=== PATIENT | female | born 1965 | race Caucasian/White ===

== ENCOUNTER 2017-11-15 07:52 | Day surgery (SDC) | payer MEDICAID, SELFPAY ==
[2017-11-15] MEDS ORDERED: Sodium Chloride 0.9% 10 ML Syringe FLUSH PRN (08:15)
[2017-11-15] MEDS ORDERED: Lactated Ringers 1,000 ML IV SCH (08:15)
[2017-11-15] MEDS ORDERED: Propofol 200 MG/20 ML SDV IV ONE (10:30)
[2017-11-15] MEDS ORDERED: Glycopyrrolate 0.2 MG/ML 5 ML MDV IV ONE (10:30)
--- NOTE | 2017-11-15 11:18 | PCM.OPNOTE ---
- General Post-Op/Procedure Note Date of Surgery/Procedure: 11/15/17 Operative Procedure(s): c scope Findings: mariginal prep Pre Op Diagnosis: hx of hematochezia Post-Op Diagnosis: internal hemorrohoids Anesthesia Technique: MAC (s) Primary Surgeon: Wei Magana Anesthesia Provider: Asim Tee Pathology: none Complications: None Condition: Good Free Text/Narrative:: see dictation recommending repeat c scope in 5 yrs due to prep
--- NOTE | 2017-11-15 12:31 | OR ---
DATE OF OPERATION: 11/15/2017 SURGEON: Wei Magana MD PROCEDURE PERFORMED: Colonoscopy. PREOPERATIVE DIAGNOSIS: History of hematochezia. POSTOPERATIVE DIAGNOSIS: Marginal prep and internal hemorrhoids. INDICATIONS FOR PROCEDURE: This is a 52-year-old white female who is referred with some hematochezia. She was offered and accepted a colonoscopy. DESCRIPTION OF PROCEDURE: After an excellent IV sedation was administered, digital rectal exam was performed. No marked abnormality was noted. Flexible colonoscope was inserted into the cecum. The prep was marginal. We were able to irrigate and get a fair view of the colon; however, we did have to change out the scopes during the procedure as one scope did get clogged with particulate matter. The following findings were noted. Ascending colon, unremarkable. Transverse colon, unremarkable. Descending colon, unremarkable. Sigmoid and rectum, unremarkable. Colon was deflated. The scope was removed. Due to prep quality, no large polyps were noted. There was a possibility that we may have missed some smaller ones despite of irrigation and, therefore, I am recommending a repeat colonoscopy in 5 years. /[id number] /MODL
== END 2017-11-15 12:20 | disposition home or self-care (01) ==
LOC: FB.SDS 07:52
PROVIDERS: ATTEND Surgery
DX: K92.1 Melena (principal); K59.09 Other constipation; N39.46 Mixed incontinence; E03.9 Hypothyroidism, unspecified; E66.2 Morbid (severe) obesity with alveolar hypoventilation; Z68.43 Body mass index [BMI] 50.0-59.9, adult; R73.01 Impaired fasting glucose; F41.9 Anxiety disorder, unspecified; F33.9 Major depressive disorder, recurrent, unspecified; Z79.84 Long term (current) use of oral hypoglycemic drugs; Z79.899 Other long term (current) drug therapy; Z88.8 Allergy status to other drugs, medicaments and biological substances; Z87.891 Personal history of nicotine dependence
CPT/HCPCS: 45378; 81025; 82962; J2704; J3490; J7120

== ENCOUNTER 2018-04-07 17:34 | Emergency (ER) | payer MEDICAID ==
[2018-04-07] MEDS ORDERED: traMADol 50 MG Tab PO ONE (17:35)
[2018-04-07] MEDS: Ketorolac 60 MG/2 ML SDV IM ONE (18:25)
--- NOTE | 2018-04-07 19:43 | EDM.PDOC ---
ED HPI GENERAL MEDICAL PROBLEM - General Chief Complaint: Lower Extremity Injury/Pain Stated Complaint: PAIN IN L KNEE Time Seen by Provider: 04/07/18 17:34 Source of Information: Reports: Patient, Family History Limitations: Reports: Physical Impairment - History of Present Illness INITIAL COMMENTS - FREE TEXT/NARRATIVE: 52 y.o.w.f with a h/o osteoarthritis at her left knee, seen at the pain clinic, came to the ed because of worsening left ant knee pain.No trauma. Pt ran out of pain meds. Pt has job, which requires her to stand all day long. Pt stated, she can not put weight onto her left leg and can not do her job. She has an appointment with the pain clinic this Saturday. No open wounds, no N/V/D or any other constitutional symptoms. BP 106/69 RR 16 Pulse ox 99% on RA Pulse 83 Temp 36.1 Onset: Unknown/Unsure Onset Date: 04/04/18 Onset Time: 09:00 Duration: Day(s):, Intermittent Location: Reports: Lower Extremity, Left (knee) Quality: Reports: Ache, Dull, Same as Previous Episode Severity: Moderate Improves with: Reports: Rest Worsens with: Reports: Movement Context: Reports: Other (H/O osteoarthritis left knee) Associated Symptoms: Reports: No Other Symptoms left knee Pain Score (Numeric/FACES): 2 - Related Data Allergies Allergy/AdvReac Type Severity Reaction Status Date / Time clonazepam [From Klonopin] Allergy Anaphylactic Verified 04/07/18 18:44 Shock varenicline [From Chantix] Allergy Other Verified 04/07/18 18:44 Home Meds: Home Meds Acetaminophen 20.31 ml PO Q6H PRN 11/14/17 [History] Calcium Carbonate/Vitamin D3 [Calcium Carbonate/Vitamin D 600 MG-200 Unit] 1 tab PO DAILY 11/14/17 [History] Celecoxib [CeleBREX] 200 mg PO DAILY 11/14/17 [History] DULoxetine [Cymbalta] 30 mg PO DAILY 11/14/17 [History] Docusate Calcium [Stool Softener] 1 cap PO DAILY PRN 11/14/17 [History] Levothyroxine 150 mcg PO DAILY 11/14/17 [History] Norethindrone 0.35 mg PO DAILY 11/14/17 [History] Omeprazole 20 mg PO BID 11/14/17 [History] Oxybutynin 5 mg PO BID 11/14/17 [History] Polyethylene Glycol 1000 [Polyethylene Glycol] 1 scoop PO ASDIRECTED PRN [History] Vitamin B Complex [Ultra B-100 Complex] 1 each PO DAILY 11/14/17 [History] buPROPion [Wellbutrin] 200 mg PO DAILY 11/14/17 [History] metFORMIN HCl [Metformin HCl] 500 mg PO BID 11/14/17 [History] tiZANidine [Zanaflex] 2 - 4 mg PO BID PRN 11/14/17 [History] traZODone 300 mg PO BEDTIME 11/14/17 [History] Past Medical History HEENT History: Reports: Impaired Vision Cardiovascular History: Reports: SOB on Exertion, Other (See Below) Other Cardiovascular History: EDEMA AT TIMES AFTER A LONG DAY. 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 Neurological History: Reports: None Psychiatric History: Reports: Anxiety, Depression Endocrine/Metabolic History: Reports: Other (See Below) Other Endocrine/Metabolic History: PT DENIES ANY DIABETES, ON METFORMIN AFTER GASTRIC BYPASS. Hematologic History: Reports: None Immunologic History: Reports: None Oncologic (Cancer) History: Reports: None Dermatologic History: Reports: None - Infectious Disease History Infectious Disease History: Reports: Chicken Pox - Past Surgical History Head Surgeries/Procedures: Reports: None HEENT Surgical History: Reports: Eye Surgery GI Surgical History: Reports: Bariatric Procedure Female Surgical History: Reports: Lithotripsy/ESWL Social & Family History - Family History Family Medical History: Noncontributory - Tobacco Use Smoking Status *Q: Former Smoker Used Tobacco, but Quit: Yes Month/Year Tobacco Last Used: 2015 - Caffeine Use Caffeine Use: Reports: None - Recreational Drug Use Recreational Drug Use: No Review of Systems - Review of Systems Review Of Systems: See Below Constitutional: Reports: No Symptoms Eyes: Reports: No Symptoms Ears: Reports: No Symptoms Nose: Reports: No Symptoms Mouth/Throat: Reports: No Symptoms Respiratory: Reports: No Symptoms Cardiovascular: Reports: No Symptoms GI/Abdominal: Reports: No Symptoms Genitourinary: Reports: No Symptoms Musculoskeletal: Reports: Joint Pain (left knee) Skin: Reports: No Symptoms Neurological: Reports: No Symptoms Psychiatric: Reports: No Symptoms ED EXAM, GENERAL - Physical Exam Exam: See Below Exam Limited By: No Limitations General Appearance: Alert, WD/WN, Obese Eye Exam: Bilateral Eye: Normal Inspection Ears: Normal External Exam Ear Exam: Bilateral Ear: Auricle Normal Nose: Normal Inspection, Normal Mucosa, No Blood Throat/Mouth: Normal Inspection, Normal Lips, Normal Teeth, Normal Gums, Normal Oropharynx, Normal Voice, No Airway Compromise Head: Atraumatic, Normocephalic Neck: Normal Inspection, Supple, Non-Tender, Full Range of Motion Respiratory/Chest: No Respiratory Distress, Lungs Clear Cardiovascular: Normal Peripheral Pulses, Regular Rate, Rhythm Peripheral Pulses: 1+: Brachial (R) GI/Abdominal: Normal Bowel Sounds, Soft, Non-Tender, No Abnormal Bruit (Female) Exam: Deferred Rectal (Female) Exam: Deferred Back Exam: Normal Inspection, Full Range of Motion Extremities: Normal Inspection, Normal Range of Motion, Non-Tender, No Pedal Edema, Normal Capillary Refill Neurological: Alert, Oriented, CN II-XII Intact, Normal Cognition, Abnormal Gait Psychiatric: Normal Affect, Normal Mood Skin Exam: Warm, Dry, Intact, Normal Color, No Rash Lymphatic: No Adenopathy Course - Vital Signs Text/Narrative:: 52 y.o.w.f with a h/o osteoarthritis at her left knee, seen at the pain clinic, came to the ed because of worsening left ant knee pain.No trauma. Pt ran out of pain meds. Pt has job, which requires her to stand all day long. Pt stated, she can not put weight onto her left leg and can not do her job. She has an appointment with the pain clinic this Saturday. No open wounds, no N/V/D or any other constitutional symptoms. BP 106/69 RR 16 Pulse ox 99% on RA Pulse 83 Temp 36.1 PE: Morbid obese w f with left knee pain Imaging: left knee osteoarthritis, Official report is pending Impression: Left knee osteoarthritis Tx: Toradol, ICE. Knee immobilizer and crutches Reexam: Improved, pt was able to ambulate with crutches. Plan: D/C with instructions Last Recorded V/S: Last Vital Signs Temp 36.8 C 04/07/18 19:30 Pulse 74 04/07/18 20:05 Resp 18 04/07/18 20:05 BP 115/74 04/07/18 20:05 Pulse Ox 100 04/07/18 20:05 - Orders/Labs/Meds Orders: Active Orders 24 hr Category Date Time Status Knee 3V Lt [CR] Stat Exams 04/07/18 17:58 Taken Ice Therapy [OM.PC] Routine Oth 04/07/18 17:58 Ordered Meds: Medications Discontinued Medications Generic Name Dose Route Start Last Admin Trade Name Nicci PRN Reason Stop Dose Admin Ketorolac Tromethamine 60 mg 04/07/18 17:58 04/07/18 18:25 Toradol IM 04/07/18 17:59 60 mg ONETIME ONE Administration Departure - Departure Time of Disposition: 19:40 Disposition: Home, Self-Care 01 Condition: Good Clinical Impression: Osteoarthritis Qualifiers: Osteoarthritis location: knee Osteoarthritis type: primary Laterality: left Qualified Code(s): M17.12 - Unilateral primary osteoarthritis, left knee - Discharge Information Instructions: Crutch Use, Adult, [id number], Tramadol tablets, Knee Pain, Adult, [id number] Referrals: Arpita Brown NP [Primary Care Provider] - Yovanny Herbert DO [Physician] - Forms: ED Department Discharge, ED Return to Work/School Form Additional Instructions: Please wear the knee immobilizer, use crutches, please follow up with your orthopedic surgeon or regular MD, please come back if your symptoms get worse acutely. Tramadol 50mg 1 tablet every 8 hours as needed for pain. - My Orders Last 24 Hours: My Active Orders 04/07/18 17:58 Knee 3V Lt [CR] Stat Ice Therapy [OM.PC] Routine - Assessment/Plan Last 24 Hours: My Active Orders 04/07/18 17:58 Knee 3V Lt [CR] Stat Ice Therapy [OM.PC] Routine
== END 2018-04-07 20:15 | disposition home or self-care (01) ==
LOC: FB.ED 17:34
DX: M17.12 Unilateral primary osteoarthritis, left knee (principal); F32.9 Major depressive disorder, single episode, unspecified; F41.9 Anxiety disorder, unspecified; Z87.891 Personal history of nicotine dependence; Z79.899 Other long term (current) drug therapy; Z88.8 Allergy status to other drugs, medicaments and biological substances
CPT/HCPCS: 73562; 99283; A9270; J1885; 96372

== ENCOUNTER 2018-04-24 07:50 | Day surgery (SDC) | payer MEDICAID ==
[2018-04-24] MEDS ORDERED: Gabapentin 300 MG Cap PO ONE (08:30)
[2018-04-24] MEDS ORDERED: Sodium Chloride 0.9% 10 ML Syringe FLUSH PRN (08:30)
[2018-04-24] MEDS ORDERED: Scopolamine 1.5 MG Transdermal Patch TRDERM ONE (08:30)
[2018-04-24] MEDS ORDERED: Acetaminophen 500 MG Tab PO ONE (08:30)
[2018-04-24] MEDS ORDERED: Lactated Ringers 1,000 ML IV SCH (08:30)
[2018-04-24] MEDS ORDERED: Ropivacaine 49.25 ML, Ketorolac 30 MG, EPINEPHrine 0.5 MG, cloNIDine 80 MCG, Sodium Chl... INJECT SCH ×5 (10:00)
[2018-04-24] MEDS ORDERED: ceFAZolin 2 GM in Premix Bag 1 BAG IV ONE (10:00)
== END 2018-04-24 10:21 | disposition home or self-care (01) ==
LOC: FB.SDS 07:50
PROVIDERS: ATTEND Orthopaedic Surgery
DX: M17.12 Unilateral primary osteoarthritis, left knee (principal); Z53.9 Procedure and treatment not carried out, unspecified reason
CPT/HCPCS: 36415; 81001; 81025; 86850; 86900; 86901; 87086; A9270

== ENCOUNTER 2018-04-29 07:11 | Day surgery (SDC) | payer MEDICAID ==
[2018-04-29] MEDS ORDERED: fentaNYL 100 MCG/2 ML SDV IV ONE (07:12)
[2018-04-29] MEDS ORDERED: Dexmedetomidine 200 MCG/2 ML SDV IV ONE (07:12)
[2018-04-29] MEDS ORDERED: Lactated Ringers 1,000 ML IV ONE (07:12)
[2018-04-29] MEDS ORDERED: Ketamine 500 mg/10 ML MDV IV ONE (07:12)
[2018-04-29] MEDS ORDERED: Midazolam 1 MG/ML 2 ML SDV IV ONE (07:12)
[2018-04-29] MEDS ORDERED: Morphine PF 10 MG/10 ML SDV EPIDUR ONE (07:12)
[2018-04-29] MEDS ORDERED: ePHEDrine 50 MG/ML SDV IV ONE (07:12)
[2018-04-29] MEDS ORDERED: Propofol 200 MG/20 ML SDV IV ONE (07:12)
[2018-04-29] MEDS ORDERED: Gabapentin 300 MG Cap PO ONE (07:30)
[2018-04-29] MEDS ORDERED: Scopolamine 1.5 MG Transdermal Patch TOP ONE (07:30)
[2018-04-29] MEDS ORDERED: Lactated Ringers 1,000 ML IV SCH ×2 (07:30→10:45)
[2018-04-29] MEDS ORDERED: Acetaminophen 500 MG Tab PO ONE (07:30)
[2018-04-29] MEDS ORDERED: Ropivacaine 49.25 ML, Ketorolac 30 MG, EPINEPHrine 0.5 MG, cloNIDine 80 MCG, Sodium Chl... INJECT SCH ×5 (09:00)
[2018-04-29] MEDS ORDERED: ceFAZolin 2 GM in Premix Bag 1 BAG IV ONE (09:00)
[2018-04-29] MEDS ORDERED: diphenhydrAMINE 50 MG/ML SDV IVPUSH PRN (10:38)
[2018-04-29] MEDS ORDERED: Zolpidem 5 MG Tab PO PRN (10:38)
[2018-04-29] MEDS ORDERED: Magnesium Hydroxide 400 MG/5 ML Susp 30 ML Cup PO PRN (10:38)
[2018-04-29] MEDS ORDERED: traMADol 50 MG Tab PO PRN (10:38)
[2018-04-29] MEDS ORDERED: Sodium Chloride 0.9% 10 ML Syringe FLUSH PRN (10:38)
[2018-04-29] MEDS ORDERED: Docusate Sodium 100 MG Cap PO PRN (10:38)
[2018-04-29] MEDS ORDERED: Ondansetron 4 MG/2 ML SDV IVPUSH PRN (10:38)
[2018-04-29] MEDS ORDERED: Morphine 2 MG/ML Syringe IVPUSH PRN (10:38)
[2018-04-29] MEDS ORDERED: Sennosides 8.6 MG Tab PO PRN (10:38)
[2018-04-29] MEDS ORDERED: Bisacodyl 5 MG Tab PO PRN (10:38)
[2018-04-29] MEDS ORDERED: Naloxone 0.4 MG/ML SDV IVPUSH PRN (10:38)
[2018-04-29] MEDS ORDERED: Nalbuphine 10 MG/1 ML Vial IVPUSH PRN (10:49)
[2018-04-29] MEDS: Ketorolac 30 MG/ML SDV IVPUSH SCH ×2 (11:46→18:15)
--- NOTE | 2018-04-29 12:09 | OR ---
DATE OF OPERATION: 04/29/2018 SURGEON: Yovanny Herbert DO PREOPERATIVE DIAGNOSIS: Left knee primary osteoarthritis. POSTOPERATIVE DIAGNOSIS: Left knee primary osteoarthritis. PROCEDURE: Left knee medial compartment partial knee arthroplasty. ANESTHESIA: Spinal plus conscious sedation. FLUID: Lactated Ringer's solution. ESTIMATED BLOOD LOSS: 100 mL. COMPLICATIONS: None. SPECIMEN: None. DISCHARGE DISPOSITION: Stable to PACU. INSTRUMENTATION: DePuy Sigma size 3 femur, size 2 tibial base plate, and 7 mm size 2 polyethylene insert. HISTORY AND INDICATIONS FOR PROCEDURE: The patient was seen preoperatively in the clinic. She had failed nonoperative treatment. Preoperative imaging confirmed the above-mentioned diagnosis with [id number] deformity of the medial compartment. The risks and benefits of the procedure explained to the patient. Informed consent was obtained. DETAILS OF PROCEDURE: The patient was seen preoperatively by myself and the anesthesia staff in the preoperative holding area where the operative site was marked. She was brought to the operative suite by Anesthesia staff where spinal sedation plus conscious sedation was administered. All extremities were found to be well padded. The right lower extremity was placed into a stirrup. The left lower extremity was placed into a leg-walker under the thigh in slight flexion to avoid any femoral nerve injury. The left lower extremity also had a gel pad placed. A sterile Kingston catheter was placed prior to the procedure. The left lower extremity had a well-padded tourniquet placed on the thigh. The left lower extremity was then prepped and draped in a sterile manner. Time-out was called identifying the correct patient, the correct procedure, the correct site, and the antibiotics had been within appropriate period of time. The left lower extremity was then exsanguinated and tourniquet raised to 300 mmHg for 37 minutes and taken down during cementing. An incision was made medial to the patella through the superior pole down to the level of the tibial tubercle. A medial parapatellar incision was made. Bleeding was controlled with Bovie electrocautery as well as topical tranexamic acid. The infrapatellar fat pad was then removed. The cranial portion of the medial meniscus was removed. The medial tibia proximally was visualized using Bovie electrocautery. Gelpi's were used for retraction. An extramedullary tibial guide was made with a 2 mm proximal cut. This was in line with the ASIS. An osteotome was then used to detach the proximal tibial bone cut from the remainder of the tibia and then was removed using Renetta's. I then removed the remainder of the medial meniscus using Bovie electrocautery. Using the Renetta, I was able to place a 7 mm tibial insert. This was equal in both flexion and extension. I then marked the midportion of the distal medial femoral condyle with a marking pen using the size 2 tibial plastic insert. I then put the knee out into extension, placed my distal femoral cutting guide, pinned this in position, made my distal femoral cut. I removed the pins and then removed the guide. I then placed the knee in flexion and placed my tibial 7 mm insert and then marked the midportion. I then placed a size 3 femoral cutting guide on in line with my 2 billy indicating the midportion of the condyle on its anterior and posterior portion. I pinned this in place, made my 3 cuts and then drilled 2 lug holes. We then removed the pins holding the guide and then removed the guide. I used an osteotome to remove any extra bone. I did use a reciprocating saw to remove more osteophytes on the medial distal femur that was remaining. I then inserted my femoral trial and a 7 mm base plate. This provided excellent range of motion with excellent stability throughout flexion and extension. I then removed all my components, copiously irrigated with saline, and then placed tranexamic acid, and then cauterized the posterior capsule. I did not see any bleeders present. We then dried our bone using laps and suction and then cemented our components in place. We let down the tourniquet. The knee was held in approximately 20 degrees of flexion while the cement hardened. I had taken great care to remove any extra cement. I did remove a small amount of cement after the cement hardened and we irrigated. I used Betadine irrigation as well as tranexamic acid and pulse irrigation. This again provided excellent stability throughout range of motion. We then closed the medial parapatellar incision with two #5 Ethibond interrupted [id number] sutures and then a continuous Stratafix #1 suture. We then irrigated again with Betadine-infused irrigation, a little bit more TXA, and then pulse irrigation. We then closed the subcutaneous layer with a #1 Stratafix followed by skin brandon followed by Betadine-soaked Adaptic sponges and Gwendolyne tape. The patient was then allowed to awaken from conscious sedation and transferred to her hospital bed in stable condition. /[id number] BS/JORDY
[2018-04-29] MEDS: Sodium Chloride 0.9% 10 ML Syringe FLUSH PRN ×2 (14:15→18:15)
[2018-04-29] MEDS: ceFAZolin 1 GM in Sodium Chloride 0.9% 50 ML IV SCH (16:00)
[2018-04-29] MEDS: metFORMIN 500 MG Tab PO SCH (18:16)
[2018-04-29] MEDS: Oxybutynin 5 MG Tab PO SCH (20:45)
[2018-04-29] MEDS: buPROPion 100 MG Tab PO SCH (20:45)
[2018-04-29] MEDS ORDERED: traZODone 50 MG Tab PO SCH (21:00)
[2018-04-30] MEDS: ceFAZolin 1 GM in Sodium Chloride 0.9% 50 ML IV SCH ×2 (00:07→07:58)
[2018-04-30] MEDS: Acetaminophen/oxyCODONE 325-5 MG Tab PO PRN ×3 (03:43→12:15)
[2018-04-30] MEDS: Sodium Chloride 0.9% 10 ML Syringe FLUSH PRN ×2 (03:44→07:57)
[2018-04-30] MEDS ORDERED: Pantoprazole 40 MG Tab.CR PO SCH (06:00)
[2018-04-30] MEDS ORDERED: Levothyroxine 150 MCG Tab PO SCH (06:00)
[2018-04-30] MEDS: metFORMIN 500 MG Tab PO SCH (08:04)
[2018-04-30] MEDS: buPROPion 100 MG Tab PO SCH (08:04)
[2018-04-30] MEDS: Oxybutynin 5 MG Tab PO SCH (08:05)
[2018-04-30] MEDS ORDERED: NORETHINDRONE PO SCH (09:00)
[2018-04-30] MEDS ORDERED: Aspirin 325 MG Tab.EC PO SCH (09:00)
[2018-04-30] MEDS ORDERED: DULoxetine 30 MG Cap PO SCH (09:00)
--- NOTE | 2018-04-30 10:59 | PCM.DCSUM1 ---
Discharge Summary - Hospital Course Free Text/Narrative:: 52 yo female pod 1 left knee pka. Diagnosis: Stroke: No - Discharge Data Discharge Date: 04/30/18 Discharge Disposition: Home, W Home Health Agency 06 Condition: Good - Patient Summary/Data Operative Procedure(s) Performed: left knee medial compartment arthroplasty Complications: none Consults: Consultations 04/29/18 10:38 Respiratory Care Assess and Treatment [CONS] Routine Comment: Physician Instructions: Post-op Pneumonia Prevention 04/29/18 15:00 OT Evaluation and Treatment [CONS] Routine Please Evaluate and Treat. OT Reason for Consult: Strengthening This query below is only for informational purposes and is not editable. Admission Diagnosis/Problem: Knee joint operation PT Evaluation and Treatment [CONS] Routine Please Evaluate and Treat. PT Reason for Consult: Strengthening This query below is only for informational purposes and is not editable. Admission Diagnosis/Problem: Knee joint operation Hospital Course: admitted to [facility] 04/29/18 for left pka. kept overnight for pain control/pt/ot/ dvt prophylaxis. did well. pain controlled. dc with home health today - Patient Instructions Diet: Usual Diet as Tolerated Activity: Apply Ice, As Tolerated, No Strenuous Activities Driving: Do Not Drive Showering/Bathing: May Shower Wound/Incision Care: Change Dressing Daily Wound/Incision, Other: daily dressing change with sponge and tape Notify Provider of: Fever, Increased Pain, Swelling and Redness, Drainage, Nausea and/or Vomiting - Discharge Plan *PRESCRIPTION DRUG MONITORING PROGRAM REVIEWED*: Yes *COPY OF PRESCRIPTION DRUG MONITORING REPORT IN PATIENT GRACIA: No Prescriptions/Med Rec: Acetaminophen/oxyCODONE [Percocet 325-5 MG] 1 tab PO Q6HR PRN 14 Days #56 tablet PRN Reason: Pain (Moderate 4-6) Aspirin [Ecotrin] 325 mg PO DAILY #21 tab.ec Home Medications: Home Meds buPROPion [Wellbutrin] 400 mg PO DAILY 11/14/17 [History] tiZANidine [Zanaflex] 2 - 4 mg PO BID PRN 11/14/17 [History] Acetaminophen [Tylenol 160 MG/5 ML Liq] 650 mg PO Q6HR PRN 04/23/18 [History] Calcium Carbonate/Vitamin D3 [Calcium 250+D] 1 tab PO WITHBREAKFAST 04/23/18 [ History] Celecoxib 200 mg PO WITHBREAKFAST 04/23/18 [History] DULoxetine HCl [Duloxetine HCl] 30 mg PO DAILY 04/23/18 [History] Docusate Calcium 1 cap PO ASDIRECTED PRN 04/23/18 [History] Levothyroxine 150 mcg PO DAILY 04/23/18 [History] Multivitamin [Multiple Vitamins] 1 tab PO BID 04/23/18 [History] Norethindrone 1 tab PO DAILY 04/23/18 [History] Omeprazole 20 mg PO ASDIRECTED PRN 04/23/18 [History] Oxybutynin 5 mg PO BID 04/23/18 [History] Polyethylene Glycol 3350 [Miralax] 1 scoop PO ASDIRECTED PRN 04/23/18 [History] Vitamin B Complex [B Complex] 1 each PO DAILY 04/23/18 [History] metFORMIN HCl [Metformin HCl] 500 mg PO BID 04/23/18 [History] traZODone 150 mg PO BEDTIME 04/23/18 [History] Acetaminophen/oxyCODONE [Percocet 325-5 MG] 1 tab PO Q6HR PRN 14 Days #56 tablet 04/30/18 [Rx] Aspirin [Ecotrin] 325 mg PO DAILY #21 tab.ec 04/30/18 [Rx] Patient Handouts: Total Knee Replacement, Care After, Total Knee Replacement, [id number], Fall Prevention in Hospitals, Adult, Venous Thromboembolism Prevention - Discharge Summary/Plan Comment DC Time >30 min.: No - General Info Functional Status: Reports: Pain Controlled, Tolerating Diet, Ambulating, Urinating - Review of Systems General: Reports: No Symptoms HEENT: Reports: No Symptoms Pulmonary: Reports: No Symptoms Cardiovascular: Reports: No Symptoms Gastrointestinal: Reports: No Symptoms Genitourinary: Reports: No Symptoms Musculoskeletal: Reports: Joint Pain, Joint Swelling Skin: Reports: No Symptoms Neurological: Reports: No Symptoms Psychiatric: Reports: No Symptoms - Patient Data Vitals - Most Recent: Last Vital Signs Temp 98.5 F 04/30/18 07:20 Pulse 68 04/30/18 07:20 Resp 18 04/30/18 07:20 BP 93/56 L 04/30/18 07:20 Pulse Ox 95 04/30/18 07:20 Weight - Most Recent: 218 lb 7.649 oz I&O - Last 24 hours: Intake & Output 04/29/18 04/30/18 04/30/18 22:59 06:59 14:59 Intake Total 550 250 300 Output Total 350 800 Balance 200 -550 300 Lab Results - Last 24 hrs: Laboratory Results - last 24 hr 04/30/18 04/30/18 Range/Units 06:00 06:00 WBC 6.9 (4.5-12.0) X10-3/uL RBC 4.28 (3.23-5.20) x10(6)uL Hgb 13.1 (11.5-15.5) g/dL Hct 38.3 (30.0-51.3) % MCV 89.4 (80-96) fL MCH 30.5 (27.7-33.6) pg MCHC 34.2 (32.2-35.4) g/dL RDW 12.8 (11.5-15.5) % Plt Count 224 (125-369) X10(3)uL MPV 8.4 (7.4-10.4) fL Neut % (Auto) 64.4 (46-82) % Lymph % (Auto) 26.0 (13-37) % Blackford % (Auto) 6.3 (4-12) % Eos % (Auto) 3 (1.0-5.0) % Baso % (Auto) 1 (0-2) % Neut # (Auto) 4.5 (1.6-8.3) # Lymph # (Auto) 1.8 (0.6-5.0) # Blackford # (Auto) 0.4 (0.0-1.3) # Eos # (Auto) 0.2 (0.0-0.8) # Baso # (Auto) 0.0 (0.0-0.2) # Sodium 138 (135-145) mmol/L Potassium 4.5 (3.5-5.3) mmol/L Chloride 103 (100-110) mmol/L Carbon Dioxide 31 (21-32) mmol/L BUN 25 H (7-18) mg/dL Creatinine 1.3 H (0.55-1.02) mg/dL Est Cr Clr Drug Dosing 40.95 mL/min Estimated GFR (MDRD) 43 L (>60) BUN/Creatinine Ratio 19.2 (9-20) Glucose 98 (80-116) mg/dL Calcium 8.7 (8.6-10.2) mg/dL Total Bilirubin 0.2 (0.1-1.3) mg/dL AST 20 (5-25) IU/L ALT 18 (12-36) U/L Alkaline Phosphatase 68 (56-112) IU/L Total Protein 6.7 (6.0-8.0) g/dL Albumin 3.3 L (3.5-5.2) g/dL Globulin 3.4 g/dL Albumin/Globulin Ratio 1.0 Med Orders - Current: Current Medications Aspirin (Ecotrin) 325 mg PO DAILY [facility] Last Admin: 04/30/18 08:05 Dose: 325 mg Bisacodyl (Dulcolax) 10 mg PO DAILY PRN PRN Reason: Constipation Bupropion HCl (Wellbutrin) 200 mg PO BID [facility] Last Admin: 04/30/18 08:04 Dose: 200 mg Diphenhydramine HCl (Benadryl) 25 mg IVPUSH Q4H PRN PRN Reason: Itching Docusate Sodium (Colace) 100 mg PO BID PRN PRN Reason: Constipation Duloxetine HCl (Cymbalta) 30 mg PO DAILY [facility] Last Admin: 04/30/18 08:05 Dose: 30 mg Levothyroxine Sodium (Levothyroxine) 150 mcg PO DAILY@0600 [facility] Last Admin: 04/30/18 06:05 Dose: 150 mcg Magnesium Hydroxide (Milk Of Magnesia) 30 ml PO BID PRN PRN Reason: Constipation Metformin HCl (Glucophage) 500 mg PO BIDMEALS [facility] Last Admin: 04/30/18 08:04 Dose: 500 mg Morphine Sulfate (Morphine) 2 mg IVPUSH Q2H PRN PRN Reason: Breakthrough Pain Nalbuphine HCl (Nubain) 10 mg IVPUSH Q1H PRN PRN Reason: Pruritus Naloxone HCl (Narcan) 0.1 mg IVPUSH ONETIME PRN PRN Reason: Oversedation Non-Formulary Medication (Norethindrone [Norethindrone]) 1 tab PO DAILY [facility] Ondansetron HCl (Zofran) 4 mg IVPUSH Q4H PRN PRN Reason: Nausea/Vomiting Oxybutynin Chloride (Oxybutynin) 5 mg PO BID [facility] Last Admin: 04/30/18 08:05 Dose: 5 mg Oxycodone/Acetaminophen (Percocet 325-5 Mg) 2 tab PO Q4H PRN PRN Reason: Pain (moderate 4-6) Last Admin: 04/30/18 08:02 Dose: 2 tab Pantoprazole Sodium (Protonix) 40 mg PO DAILY@0600 [facility] Last Admin: 04/30/18 06:05 Dose: 40 mg Senna (Senna) 8.6 mg PO BID PRN PRN Reason: Constipation Sodium Chloride (Saline Flush) 10 ml FLUSH ASDIRECTED PRN PRN Reason: Keep Vein Open Last Admin: 04/30/18 07:57 Dose: 10 ml Sodium Chloride (Saline Flush) 10 ml FLUSH ASDIRECTED PRN PRN Reason: Keep Vein Open Tramadol HCl (Ultram) 100 mg PO Q6H PRN PRN Reason: Pain (mild 1-3) Trazodone HCl (Trazodone) 150 mg PO BEDTIME [facility] Last Admin: 04/29/18 20:45 Dose: 150 mg Zolpidem Tartrate (Ambien) 5 mg PO BEDTIME PRN PRN Reason: Sleep Discontinued Medications Acetaminophen (Tylenol Extra Strength) 1,000 mg PO ONETIME ONE Stop: 04/29/18 07:31 Last Admin: 04/29/18 07:41 Dose: 1,000 mg Ropivacaine 49.25 ml/Ketorolac Tromethamine 30 mg/Epinephrine HCl 0.5 mg/ Clonidine HCl 80 mcg/ Sodium Chloride 48.45 ml 0 ml INJECT ASDIRECTED [facility] Last Admin: 04/29/18 10:18 Dose: 100 syringe Gabapentin (Neurontin) 300 mg PO ONETIME ONE Stop: 04/29/18 07:31 Last Admin: 04/29/18 07:41 Dose: 300 mg Cefazolin Sodium/Dextrose 2 gm (/ Premix) 50 mls @ 100 mls/hr IV ONETIME ONE Stop: 04/29/18 09:29 Last Admin: 04/29/18 08:17 Dose: 100 mls/hr Lactated Ringer's (Ringers, Lactated) 1,000 mls @ 125 mls/hr IV ASDIRECTED [facility] Last Admin: 04/29/18 08:16 Dose: 125 mls/hr Cefazolin Sodium 1 gm/ Sodium (Chloride) 50 mls @ 200 mls/hr IV Q8H [facility] Stop: 04/30/18 08:14 Last Admin: 04/30/18 07:58 Dose: 200 mls/hr Lactated Ringer's (Ringers, Lactated) 1,000 mls @ 75 mls/hr IV ASDIRECTED [facility] Last Admin: 04/29/18 12:26 Dose: 75 mls/hr Ketorolac Tromethamine (Toradol) 30 mg IVPUSH Q8H [facility] Stop: 04/29/18 19:01 Last Admin: 04/29/18 18:15 Dose: 30 mg Scopolamine (Transderm-Scop) 1.5 mg TOP ONETIME ONE Stop: 04/29/18 07:31 Last Admin: 04/29/18 07:42 Dose: 1.5 mg - Exam General: Reports: Alert, Oriented, Cooperative, No Acute Distress HEENT: Reports: Pupils Equal, Pupils Reactive, Mucous Membr. Moist/Neshanic Neck: Reports: Supple, Trachea Midline Lungs: Reports: Normal Respiratory Effort GI/Abdominal Exam: No Distention Extremities: No Pedal Edema, Normal Capillary Refill, Joint Swelling, Leg Pain, Limited Range of Motion Skin: Reports: Warm, Intact Wound/Incisions: Reports: Healing Well, Dressing Dry and Intact, No Drainage Psy/Mental Status: Reports: Alert, Normal Affect, Normal Mood Discharge Operative/Procedures - Procedures Performed Operations: left knee pka
[2018-04-30] MEDS ORDERED: buPROPion 100 MG Tab PO ONE (11:01)
== END 2018-04-30 14:40 | disposition home health service (06) ==
LOC: FB.SDS 07:11 → FB.MS 12:12 → FB.SDS 04-30 14:40
PROVIDERS: ATTEND Orthopaedic Surgery
DX: M17.0 Bilateral primary osteoarthritis of knee (principal); E66.2 Morbid (severe) obesity with alveolar hypoventilation; Z68.41 Body mass index [BMI] 40.0-44.9, adult; E03.9 Hypothyroidism, unspecified; F41.9 Anxiety disorder, unspecified; F32.9 Major depressive disorder, single episode, unspecified; Z79.899 Other long term (current) drug therapy; Z79.890 Hormone replacement therapy; Z87.891 Personal history of nicotine dependence
CPT/HCPCS: 27446; 36415; 73560; 80053; 84702; 85025; 86850; 86900; 86901; 97110; 97161; 97166; 97530; A9270; J0171; J0690; J0735; J1885; J2795; J7050; J7120; J2250; J2274; J2704; J3010; J3490

== ENCOUNTER 2019-05-05 07:13 | Day surgery (SDC) | payer MEDICAID ==
[2019-05-05] MEDS ORDERED: Sodium Chloride 0.9% 10 ML Syringe FLUSH PRN ×2 (07:15)
[2019-05-05] MEDS ORDERED: Scopolamine 1.5 MG Transdermal Patch TOP ONE (07:15)
[2019-05-05] MEDS ORDERED: Lactated Ringers 1,000 ML IV SCH ×2 (07:15)
[2019-05-05] MEDS ORDERED: Acetaminophen 500 MG Tab PO ONE (07:15)
[2019-05-05] MEDS ORDERED: Gabapentin 300 MG Cap PO ONE (07:15)
[2019-05-05] MEDS ORDERED: Ropivacaine 49.25 ML, Ketorolac 30 MG, EPINEPHrine 0.5 MG, cloNIDine 80 MCG, Sodium Chl... INJECT SCH ×5 (08:00)
[2019-05-05] MEDS ORDERED: 50% Dextrose in Water 50 ML Syringe IVPUSH ONE (08:37)
[2019-05-05] MEDS ORDERED: Tranexamic Acid 3,000 MG, Sodium Chloride 0.9% 100 ML IRR ONE ×2 (09:00)
[2019-05-05] MEDS ORDERED: ceFAZolin 2 GM in Premix Bag 1 BAG IV ONE (09:00)
[2019-05-05] MEDS ORDERED: Ropivacaine 49.25 ML, Ketorolac 30 MG, EPINEPHrine 0.5 MG, cloNIDine 80 MCG, Sodium Chl... INJECT ONE ×5 (09:00)
== END 2019-05-05 09:50 | disposition home or self-care (01) ==
LOC: FB.SDS 07:13
PROVIDERS: ATTEND Orthopaedic Surgery
DX: Z53.9 Procedure and treatment not carried out, unspecified reason (principal)
CPT/HCPCS: 82962; A9270; J7120

== ENCOUNTER 2019-05-11 07:15 | Day surgery (SDC) | payer MEDICAID ==
[~2019-05-11 07:15] MED LIST: Acetaminophen 500 MG Tab PO ONE; Gabapentin 300 MG Cap PO ONE; Lactated Ringers 1,000 ML IV SCH; Scopolamine 1.5 MG Transdermal Patch TRDERM ONE
[2019-05-11] MEDS ORDERED: fentaNYL 100 MCG/2 ML SDV IV ONE (07:16)
[2019-05-11] MEDS ORDERED: Propofol 200 MG/20 ML SDV IV ONE (07:16)
[2019-05-11] MEDS ORDERED: Ondansetron 4 MG/2 ML SDV IVPUSH ONE (07:16)
[2019-05-11] MEDS ORDERED: Lactated Ringers 1,000 ML IV ONE (07:16)
[2019-05-11] MEDS ORDERED: Ketamine 500 mg/10 ML MDV IV ONE (07:16)
[2019-05-11] MEDS ORDERED: Dexamethasone Sodium Phos/PF 10 MG/ML VIAL IJ ONE (07:16)
[2019-05-11] MEDS ORDERED: Ropivacaine 0.5% 5 MG/ML 20 ML SDV INJECT ONE (07:16)
[2019-05-11] MEDS ORDERED: ePHEDrine 50 MG/ML SDV IV ONE (07:16)
[2019-05-11] MEDS ORDERED: Midazolam 1 MG/ML 2 ML SDV IV ONE (07:16)
[2019-05-11] MEDS ORDERED: Ketorolac 30 MG/ML SDV IVPUSH ONE (07:16)
[2019-05-11] MEDS ORDERED: Dextrose 5%-Lactated Ringers 1,000 ML IV SCH (08:15)
[2019-05-11] MEDS ORDERED: Tranexamic Acid 3,000 MG, Sodium Chloride 0.9% 100 ML IRR ONE ×2 (09:00)
[2019-05-11] MEDS ORDERED: ceFAZolin 2 GM in Premix Bag 1 BAG IV ONE (09:00)
[2019-05-11] MEDS ORDERED: Ropivacaine 49.25 ML, Ketorolac 30 MG, EPINEPHrine 0.5 MG, cloNIDine 80 MCG, Sodium Chl... INJECT SCH ×10 (09:00→10:15)
[2019-05-11] MEDS ORDERED: Vancomycin 1 GM SDV ONE (10:41)
--- NOTE | 2019-05-11 11:02 | PCM.OPNOTE ---
- General Post-Op/Procedure Note Date of Surgery/Procedure: 05/11/19 Operative Procedure(s): r tka Pre Op Diagnosis: r knee primary oa Post-Op Diagnosis: Same Anesthesia Technique: Combo Spinal/Epidural, MAC Primary Surgeon: Yovanny Herbert Anesthesia Provider: Shellie Olsen Digital Account Manager: Tosha Lino EBL in mLs: 100 Drain/Tube Comments:: wound vac Complications: None Condition: Good
[2019-05-11] MEDS ORDERED: Bisacodyl 5 MG Tab PO PRN (11:28)
[2019-05-11] MEDS ORDERED: Sennosides 8.6 MG Tab PO PRN (11:28)
[2019-05-11] MEDS ORDERED: Sodium Chloride 0.9% 10 ML Syringe FLUSH PRN (11:28)
[2019-05-11] MEDS ORDERED: traMADol 50 MG Tab PO PRN (11:28)
[2019-05-11] MEDS ORDERED: Zolpidem 5 MG Tab PO PRN (11:28)
[2019-05-11] MEDS ORDERED: Naloxone 0.4 MG/ML SDV IVPUSH PRN (11:28)
[2019-05-11] MEDS ORDERED: Magnesium Hydroxide 400 MG/5 ML Susp 30 ML Cup PO PRN (11:28)
[2019-05-11] MEDS ORDERED: diphenhydrAMINE 50 MG/ML SDV IVPUSH PRN (11:28)
[2019-05-11] MEDS ORDERED: Morphine 2 MG/ML SYRINGE IVPUSH PRN (11:28)
[2019-05-11] MEDS ORDERED: Docusate Sodium 100 MG Cap PO PRN (11:28)
[2019-05-11] MEDS ORDERED: Ondansetron 4 MG/2 ML SDV IVPUSH PRN (11:28)
[2019-05-11] MEDS ORDERED: Lactated Ringers 1,000 ML IV SCH (11:30)
[2019-05-11] MEDS ORDERED: tiZANidine 4 MG Tab PO PRN (11:43)
[2019-05-11] MEDS ORDERED: ceFAZolin 1 GM in Sodium Chloride 0.9% 50 ML IV SCH (11:45)
[2019-05-11] MEDS ORDERED: Pantoprazole 40 MG Tab.CR PO PRN ×2 (12:00)
--- NOTE | 2019-05-11 12:45 | OR ---
DATE OF OPERATION: 05/11/2019 SURGEON: Yovanny Herbert DO PREOPERATIVE DIAGNOSIS: Right knee primary osteoarthritis. POSTOPERATIVE DIAGNOSIS: Right knee primary osteoarthritis. PROCEDURE: Right knee total knee arthroplasty. MACHINE STOPPAGE FREQUENCY CHECKER: Tosha Lino NP. Nurse practitioner, Tosha Lino NP, played an essential role in assisting in this case, helping to position the patient, retract structures as needed, as well as suturing and cutting sutures as indicated. Her presence improved patient's safety and decreased operative time. ANESTHESIA: Shellie Olsen, HOSPITAL SECRETARY; spinal plus conscious sedation. FLUID: Lactated Ringer solution. ESTIMATED BLOOD LOSS: 100 mL. COMPLICATION: None. SPECIMEN: None. DISCHARGE DISPOSITION: Stable to PACU. INSTRUMENTATION: DePuy Attune size 5 cruciate retaining femur, size 5 cemented tibial baseplate, size 38 mm medialized dome polyethylene patella, and size five 8 mm fixed bearing tibial PEEK polyethylene insert. HISTORY AND INDICATIONS FOR THE PROCEDURE: The patient is well known to me. We had performed a left knee medial arthroplasty on her previously. She did quite well from this. Preoperative imaging confirmed the above-mentioned diagnosis. Risks and benefits of the procedure were explained to the patient and informed consent was obtained. DETAILS OF PROCEDURE: The patient was seen preoperatively by myself and Anesthesia staff in the preop holding area, where the operative site was marked. She was brought to the operative suite by Anesthesia staff, where spinal anesthesia was administered. All extremities were found to be well padded. A well-padded tourniquet was placed on the right thigh. Sterile Kingston catheter was placed. The right lower extremity was then prepped and draped in a sterile manner. Time-out was called identifying the correct patient, correct procedure, the correct site, and the antibiotics were begun within appropriate period of time. The right lower extremity was exsanguinated. Tourniquet was raised to 250 mmHg for 40 minutes and let down during cementing. A midline incision was made 3-1/2 fingerbreadths proximal to the patella down to the level of the tibial tubercle. Bleeding was controlled with Bovie electrocautery. Medial parapatellar arthrotomy was made. A full synovectomy was performed. The proximal medial tibial was visualized using Bovie electrocautery. The patella was everted, the knee flexed, and then we removed some extra fat and osteophytes around the patella. Then, I made 2 perpendicular saw cuts. We then extended the patella and this measured 38. We drilled our 3 lug holes and then placed our patella trial. I then flexed the knee again and then reamed the distal femur. I removed some extra osteophytes from the femur as well. We placed our distal femoral cutting guide, which was an intramedullary guide at 5 degree valgus right, 9 mm distal cut. I pinned this in place, removed my intramedullary portion of the guide and then made my distal femoral cuts. I then removed this and then used a posterior condylar guide at high flexion which measured 5. I placed 2 pins and then removed my guide and then placed the chamfer block and used pins to hold it in place. I then protected the soft tissues with Hohmann's and then made my anterior, posterior, and chamfer cuts. We rasped the sulcus using the guide. I then used my extramedullary tibial guide in line of the tibial tubercle and the second metatarsal and then with a 3 mm Stylus, pinned that in place with approximately 5 degree posterior slope. We then anteriorized the tibia using a blunt Hohmann protecting the medial lateral collateral ligaments with sharp Hohmann's. I then made my proximal tibial cut and then elevated this with an osteotome and removed using Bovie electrocautery and Renetta's. After this had been completed, I removed all of my guides and pins and then placed a Laminar Feed Preparation Operator in flexion, removed the posterior portion of the medial and lateral menisci and then used a curved osteotome to remove any posterior osteophytes, which there were on both the medial and lateral side. We then anteriorized the tibia again and placed my sharp Hohmann's medially and laterally and then placed a 5 baseplate in line with the tibial tubercle and the 2nd metatarsal. I then tapped my tower down and then reamed and then tamped my tibial baseplate in. I then placed my femoral trial and then placed a size five 5 mm polyethylene insert, which did provide good stability throughout range of motion. I did think it might be a little loose, but we could cement with that in place. All of our components were then removed. We then irrigated and dried. I applied TXA at that point in time and then cemented all my components in place. We kept the knee in extension with slight internal rotation. The tourniquet was let down at 40 minutes. We applied TXA and warm iodine infused irrigation. After the cement dried, we then removed any extra cement, which was present. We then trialed up to a size five 8 mm poly which I thought provided very good stability and then irrigated again and then placed the final polyethylene insert onto the tibial baseplate. This provided excellent stability throughout range of motion. We then irrigated again and then I placed 0.5 g of vancomycin inside the wound. My assist then closed with two #5 figure- of-eight Ethibond sutures into the superior and inferior poles of the patella, followed by #1 Stratafix in a watertight manner for the parapatellar arthrotomy followed by irrigation again, 0.5 g of vancomycin subcutaneously, then closed with #2 Stratafix subcutaneously followed by skin brandon and then placed a KAT 10 x 20 cm wound VAC. We did this because the patient was counseled from 1 week because she had a new cat and did have some clot billy on which had healed up, but I wanted to keep this protected from any cat hair at home. The patient was then allowed to awaken from conscious sedation and taken to the PACU in stable condition. /[id number] TYLER/JORDY
[2019-05-11] MEDS ORDERED: Acetaminophen/oxyCODONE 325-5 MG Tab PO PRN (13:02)
[2019-05-11] MEDS ORDERED: Acetaminophen/HYDROcodone 325-5 MG Tab PO PRN (13:03)
--- NOTE | 2019-05-11 17:19 | CR ---
INDICATION: Post-op right total knee arthroplasty. RIGHT KNEE: Frontal and lateral views of the right knee were obtained post-op portable of the right knee frontal and lateral 05/11/19 and compared with now revealing a total knee arthroplasty in satisfactory position and alignment without evidence of definite complicating process. Skin brandon are noted anteriorly, some air is noted in the joint post-op. A drain is noted inferiorly. IMPRESSION: Overall satisfactory appearance post-op right total knee arthroplasty. AIYANA
--- NOTE | 2019-05-11 17:21 | US ---
INDICATION: Post knee surgery. ULTRASOUND RFA GUIDANCE: Ultrasound was utilized for RFA guidance. Images were obtained. [facility]
[2019-05-11] MEDS: ceFAZolin 1 GM Vial IVPUSH SCH (17:47)
[2019-05-11] MEDS: Sodium Chloride 0.9% 10 ML Syringe FLUSH PRN (17:48)
[2019-05-11] MEDS: Ketorolac 30 MG/ML SDV IVPUSH SCH (19:01)
[2019-05-11] MEDS: metFORMIN 500 MG Tab PO SCH (21:26)
[2019-05-11] MEDS: Multivitamin Tab *PTOM PO SCH (21:34)
[2019-05-12] MEDS: Sodium Chloride 0.9% 10 ML Syringe FLUSH PRN ×2 (00:53→02:35)
[2019-05-12] MEDS: ceFAZolin 1 GM Vial IVPUSH SCH (00:54)
[2019-05-12] MEDS: Ketorolac 30 MG/ML SDV IVPUSH SCH (02:36)
[2019-05-12] MEDS ORDERED: Levothyroxine 150 MCG Tab PO SCH (06:00)
[2019-05-12] MEDS: metFORMIN 500 MG Tab PO SCH (08:09)
[2019-05-12] MEDS: Multivitamin Tab *PTOM PO SCH (08:10)
[2019-05-12] MEDS ORDERED: DULoxetine 30 MG Cap PO SCH (09:00)
[2019-05-12] MEDS ORDERED: Aspirin 325 MG Tab.EC PO SCH (09:00)
[2019-05-12] MEDS ORDERED: VITAMIN B COMPLEX PO SCH (09:00)
[2019-05-12] MEDS ORDERED: buPROPion 100 MG Tab PO SCH (09:00)
[2019-05-12] MEDS ORDERED: NORETHINDRONE 0.35 MG PO SCH (09:00)
[2019-05-12] MEDS ORDERED: Oxybutynin 5 MG Tab PO SCH (09:00)
[2019-05-12] MEDS ORDERED: LACTOBACILLUS RHAMNOSUS GG PO SCH (09:00)
--- NOTE | 2019-05-12 10:25 | PCM.DCSUM1 ---
Discharge Summary - Hospital Course HPI Initial Comments: 53 yo female right knee primary oa Diagnosis: Stroke: No - Discharge Data Discharge Date: 05/12/19 Discharge Disposition: Home, Self-Care 01 Condition: Good - Referral to Home Health Primary Care Physician: Arpita Brown NP - Patient Summary/Data Operative Procedure(s) Performed: r tka Complications: none Consults: Consultations 05/11/19 11:28 Respiratory Care Assess and Treatment [CONS] Routine Comment: Physician Instructions: Post-op Pneumonia Prevention 05/11/19 15:00 OT Evaluation and Treatment [CONS] Routine Please Evaluate and Treat. OT Reason for Consult: Strengthening This query below is only for informational purposes and is not editable. Admission Diagnosis/Problem: Right knee pain PT Evaluation and Treatment [CONS] Routine Please Evaluate and Treat. PT Reason for Consult: Strengthening This query below is only for informational purposes and is not editable. Admission Diagnosis/Problem: Right knee pain - Patient Instructions Diet: Usual Diet as Tolerated Activity: Apply Ice, As Tolerated, Full Weight Bearing, No Strenuous Activities Driving: Do Not Drive Showering/Bathing: May Shower Showering/Bathing, Other: remove wound vac Saturday, apply aquacell for five days Wound/Incision Care: Keep Operative Site/Wound Site Clean and Dry - Discharge Plan *PRESCRIPTION DRUG MONITORING PROGRAM REVIEWED*: Yes *COPY OF PRESCRIPTION DRUG MONITORING REPORT IN PATIENT GRACIA: No Prescriptions/Med Rec: Acetaminophen/oxyCODONE [Percocet 325-5 MG] 1 tab PO Q6H PRN #28 tablet PRN Reason: PAIN 7-10/10 Aspirin [Ecotrin EC] 325 mg PO DAILY #21 tab.ec Home Medications: Home Meds buPROPion [Wellbutrin] 300 mg PO DAILY 11/14/17 [History] tiZANidine [Zanaflex] 2 - 4 mg PO BID PRN 11/14/17 [History] Acetaminophen [Tylenol 160 MG/5 ML Liq] 650 mg PO Q6HR PRN 04/23/18 [History] Calcium Carbonate/Vitamin D3 [Calcium 250+D] 1 tab PO WITHBREAKFAST 04/23/18 [ History] Celecoxib 200 mg PO WITHBREAKFAST 04/23/18 [History] DULoxetine HCl [Duloxetine HCl] 30 mg PO DAILY 04/23/18 [History] Docusate Calcium 1 cap PO ASDIRECTED PRN 04/23/18 [History] Levothyroxine 150 mcg PO DAILY 04/23/18 [History] Multivitamin [Multiple Vitamins] 1 tab PO BID 04/23/18 [History] Norethindrone 1 tab PO DAILY 04/23/18 [History] Omeprazole 20 mg PO ASDIRECTED PRN 04/23/18 [History] Oxybutynin 5 mg PO BID 04/23/18 [History] Polyethylene Glycol 3350 [Miralax] 1 scoop PO ASDIRECTED PRN 04/23/18 [History] Vitamin B Complex [B Complex] 1 each PO DAILY 04/23/18 [History] metFORMIN HCl [Metformin HCl] 500 mg PO BID 04/23/18 [History] traZODone 150 mg PO BEDTIME 04/23/18 [History] Sodium Fluoride [Denta 5000 Plus] 1 applic PO ASDIRECTED 05/04/19 [History] Aspirin [Ecotrin EC] 325 mg PO ASDIRECTED PRN 05/11/19 [History] Ginkgo Biloba 4:1 Extract 125 mg PO BEDTIME 05/11/19 [History] Lactobacillus Acidophilus [Acidophilus] 1 cap PO DAILY 05/11/19 [History] Acetaminophen/oxyCODONE [Percocet 325-5 MG] 1 tab PO Q6H PRN #28 tablet [Rx] Aspirin [Ecotrin EC] 325 mg PO DAILY #21 tab.ec 05/12/19 [Rx] Patient Handouts: Deep Vein Thrombosis - Discharge Summary/Plan Comment DC Time >30 min.: No - General Info Date of Service: 05/12/19 Admission Dx/Problem (Free Text: right knee primary oa Functional Status: Reports: Pain Controlled, Tolerating Diet, Ambulating - Review of Systems General: Reports: No Symptoms HEENT: Reports: No Symptoms Pulmonary: Reports: No Symptoms Cardiovascular: Reports: No Symptoms Gastrointestinal: Reports: No Symptoms Genitourinary: Reports: No Symptoms Musculoskeletal: Reports: Joint Pain, Joint Swelling Skin: Reports: No Symptoms Neurological: Reports: No Symptoms Psychiatric: Reports: No Symptoms - Patient Data Vitals - Most Recent: Last Vital Signs Temp 98.4 F 05/12/19 05:50 Pulse 86 05/12/19 05:50 Resp 20 05/12/19 05:50 BP 116/61 05/12/19 05:50 Pulse Ox 94 L 05/12/19 05:50 Weight - Most Recent: 200 lb I&O - Last 24 hours: Intake & Output 05/11/19 05/12/19 05/12/19 22:59 06:59 14:59 Output Total 1900 900 Balance -1900 -900 Lab Results - Last 24 hrs: Laboratory Results - last 24 hr 05/11/19 05/12/19 05/12/19 Range/Units 08:44 06:15 06:15 WBC 11.4 (4.5-12.0) X10-3/uL RBC 3.77 (3.23-5.20) x10(6)uL Hgb 11.3 L (11.5-15.5) g/dL Hct 33.2 (30.0-51.3) % MCV 88.2 (80-96) fL MCH 30.1 (27.7-33.6) pg MCHC 34.1 (32.2-35.4) g/dL RDW 12.4 (11.5-15.5) % Plt Count 240 (125-369) X10(3)uL MPV 8.3 (7.4-10.4) fL Neut % (Auto) 83.5 H (46-82) % Lymph % (Auto) 10.7 L (13-37) % Mcminn % (Auto) 5.6 (4-12) % Eos % (Auto) 0 L (1.0-5.0) % Baso % (Auto) 0 (0-2) % Neut # (Auto) 9.6 H (1.6-8.3) # Lymph # (Auto) 1.2 (0.6-5.0) # Mcminn # (Auto) 0.6 (0.0-1.3) # Eos # (Auto) 0.0 (0.0-0.8) # Baso # (Auto) 0.0 (0.0-0.2) # Sodium 140 (135-145) mmol/L Potassium 4.6 (3.5-5.3) mmol/L Chloride 104 (100-110) mmol/L Carbon Dioxide 26 (21-32) mmol/L BUN 15 (7-18) mg/dL Creatinine 0.9 (0.55-1.02) mg/dL Est Cr Clr Drug Dosing 58.49 mL/min Estimated GFR (MDRD) > 60 (>60) BUN/Creatinine Ratio 16.7 (9-20) Glucose 95 (80-116) mg/dL POC Glucose 101 (80-116) mg/dL Calcium 8.4 L (8.6-10.2) mg/dL Total Bilirubin 0.3 (0.1-1.3) mg/dL AST 20 (5-25) IU/L ALT 26 D (12-36) U/L Alkaline Phosphatase 61 (56-112) IU/L Total Protein 6.2 (6.0-8.0) g/dL Albumin 2.9 L (3.5-5.2) g/dL Globulin 3.3 g/dL Albumin/Globulin Ratio 0.9 Med Orders - Current: Current Medications Hydrocodone Bitart/Acetaminophen (Valatie 325-5 Mg) 1 tab PO Q6H PRN PRN Reason: PAIN 3-6/10 Aspirin (Ecotrin) 325 mg PO DAILY [facility] Last Admin: 05/12/19 08:09 Dose: 325 mg Bisacodyl (Dulcolax) 10 mg PO DAILY PRN PRN Reason: Constipation Bupropion HCl (Wellbutrin) 300 mg PO DAILY [facility] Last Admin: 05/12/19 08:11 Dose: 300 mg Celecoxib (Celebrex) 200 mg PO WITHLUNCH CINDY Diazepam (Valium) 5 mg IVPUSH Q6H PRN PRN Reason: Spasms Diphenhydramine HCl (Benadryl) 25 mg IVPUSH Q4H PRN PRN Reason: Itching Docusate Sodium (Colace) 100 mg PO BID PRN PRN Reason: Constipation Duloxetine HCl (Cymbalta) 30 mg PO DAILY [facility] Last Admin: 05/12/19 08:09 Dose: 30 mg Lactobacillus Rhamnosus (Culturelle) 1 cap PO DAILY [facility] Last Admin: 05/12/19 08:09 Dose: 1 cap Levothyroxine Sodium (Levothyroxine) 150 mcg PO DAILY@0600 [facility] Last Admin: 05/12/19 05:55 Dose: 150 mcg Magnesium Hydroxide (Milk Of Magnesia) 30 ml PO BID PRN PRN Reason: Constipation Metformin HCl (Glucophage) 500 mg PO BID [facility] Last Admin: 05/12/19 08:09 Dose: 500 mg Morphine Sulfate (Morphine) 2 mg IVPUSH Q2H PRN PRN Reason: Breakthrough Pain Multivitamins (Total B With C) 1 each PO DAILY [facility] Last Admin: 05/12/19 08:10 Dose: 1 each Multivitamins/Minerals/Vitamin C (Tab-A-Ashleigh) 1 tab PO BID [facility] Last Admin: 05/12/19 08:10 Dose: 1 tab Naloxone HCl (Narcan) 0.1 mg IVPUSH ONETIME PRN PRN Reason: Oversedation Norethindrone 0.35mg 1 each PO DAILY [facility] Ondansetron HCl (Zofran) 4 mg IVPUSH Q4H PRN PRN Reason: Nausea/Vomiting Oxybutynin Chloride (Oxybutynin) 5 mg PO BID [facility] Last Admin: 05/12/19 08:10 Dose: 5 mg Oxycodone/Acetaminophen (Percocet 325-5 Mg) 1 tab PO Q6H PRN PRN Reason: PAIN 7-1010 Pantoprazole Sodium (Protonix) 40 mg PO DAILY PRN PRN Reason: HEARTBURN Senna (Senna) 8.6 mg PO BID PRN PRN Reason: Constipation Sodium Chloride (Saline Flush) 10 ml FLUSH ASDIRECTED PRN PRN Reason: Keep Vein Open Last Admin: 05/12/19 02:35 Dose: 10 ml Sodium Chloride (Saline Flush) 10 ml FLUSH ASDIRECTED PRN PRN Reason: Keep Vein Open Zolpidem Tartrate (Ambien) 5 mg PO BEDTIME PRN PRN Reason: Sleep Discontinued Medications Acetaminophen (Tylenol Extra Strength) 1,000 mg PO ONETIME ONE Stop: 05/11/19 07:01 Last Admin: 05/11/19 08:10 Dose: 1,000 mg Cefazolin Sodium (Ancef) 1 gm IVPUSH Q8H [facility] Stop: 05/12/19 01:01 Last Admin: 05/12/19 00:54 Dose: 1 gm Tranexamic Acid 3,000 mg/ (Sodium Chloride 100 ml) 0 mg IRR ONETIME ONE Stop: 05/11/19 09:01 Last Admin: 05/11/19 09:45 Dose: 100 irr Ropivacaine 49.25 ml/Ketorolac Tromethamine 30 mg/Epinephrine HCl 0.5 mg/ Clonidine HCl 80 mcg/ Sodium Chloride 48.45 ml 0 ml INJECT ASDIRECTED [facility] Last Admin: 05/11/19 10:00 Dose: 100 syringe Gabapentin (Neurontin) 300 mg PO ONETIME ONE Stop: 05/11/19 07:01 Last Admin: 05/11/19 08:10 Dose: 300 mg Cefazolin Sodium/Dextrose 2 gm (/ Premix) 50 mls @ 100 mls/hr IV ONETIME ONE Stop: 05/11/19 09:29 Last Admin: 05/11/19 08:56 Dose: 100 mls/hr Lactated Ringer's (Ringers, Lactated) 1,000 mls @ 125 mls/hr IV ASDIRECTED [facility] Dextrose/Lactated Ringer's (Dextrose 5%-Lactated Ringers) 1,000 mls @ 100 mls/ hr IV ASDIRECTED [facility] Last Admin: 05/11/19 08:12 Dose: 100 mls/hr Lactated Ringer's (Ringers, Lactated) 1,000 mls @ 75 mls/hr IV ASDIRECTED [facility] Ketorolac Tromethamine (Toradol) 30 mg IVPUSH Q8H [facility] Stop: 05/12/19 03:31 Last Admin: 05/12/19 02:36 Dose: 30 mg Scopolamine (Transderm-Scop) 1.5 mg TRDERM Q72H ONE Stop: 05/11/19 07:01 Last Admin: 05/11/19 08:11 Dose: 1.5 mg Tizanidine HCl (Zanaflex) 2 mg PO BID PRN PRN Reason: Muscle Spasm Tramadol HCl (Ultram) 100 mg PO Q6H PRN PRN Reason: Pain (mild 1-3) Vancomycin HCl (Vancomycin) 1 gm .XX .STK-MED ONE Stop: 05/11/19 10:42 Last Admin: 05/11/19 10:41 Dose: 1 gm - Exam Quality Assessment: Reports: DVT Prophylaxis General: Reports: Alert, Oriented, Cooperative, No Acute Distress HEENT: Reports: Pupils Equal, Pupils Reactive, EOMI, Mucous Membr. Moist/[place] Neck: Reports: Supple, Trachea Midline Lungs: Reports: Normal Respiratory Effort GI/Abdominal Exam: No Distention Extremities: Joint Swelling, Leg Pain, Limited Range of Motion Skin: Reports: Warm, Dry, Intact Wound/Incisions: Reports: Healing Well, Dressing Dry and Intact, No Drainage Neurological: Reports: No New Focal Deficit Psy/Mental Status: Reports: Alert, Normal Affect, Normal Mood Discharge Operative/Procedures - Procedures Performed Operations: right tka LP Indication: CSF analysis Arterial Line Indication: hemodynamic monitoring Chest Tube Indication: pneumothorax Thoracentesis Indication: pleural effusion Paracentesis Indication: ascites
--- NOTE | 2019-05-12 10:47 | ANES ---
DATE OF PROCEDURE: 05/11/2019 REFERRING PHYSICIAN: Yovanny Herbert DO PATIENT STATUS: A.m. admit for total knee replacement on the right side. ANESTHESIA PROVIDED: Adductor canal block on the right side for postop pain relief. PREOPERATIVE DIAGNOSIS: Right knee osteoarthritis with pain. PROCEDURE PERFORMED PRIOR TO THE BLOCK: Right total knee replacement. DESCRIPTION OF PROCEDURE: The patient was taken to recovery room after having her surgery. Within 10 minutes, we did administer the block. Both the patient and surgeon requested this block for postop pain control, and after risks and benefits were discussed prior to her surgery, she did consent and signed the consent. The patient was placed supine with standard monitoring NIBP, ECG, SaO2, and she had no oxygen during the procedure. The patient was supine with the right leg placed in the frog-leg position. A preprocedure ultrasound scan was done, locating the right femoral artery and the sartorius muscle, could see this clearly on the screen. This area was prepped with ChloraPrep sponge, and it was allowed to dry. Due to the spinal from her surgery, no local anesthetic was needed. Under aseptic technique and under direct ultrasound guidance, I inserted and advanced a 20 gauge 14-inch Stimuplex Ultra 360 insulated echogenic needle to the proper position next to the right femoral artery and below and centered on the sartorius muscle. With direct visualization, a total volume of 30 mL of 0.5% Naropin and Decadron PF 10 mgs was given with frequent negative aspiration initially and every 5 ml. The sartorius and the artery were nicely displaced. The patient had no complaints of discomfort. The patient was alert and arousable throughout the procedure. DOCUMENTATION: Ultrasound images were taken, which are stored at the Radiology's PACS system. TIME OF PROCEDURE: 1147 to 1153. The patient was visited prior to discharge from [facility]. The patient stated she had 0/10 pain. The patient was also visited on 05/12/19 10 AM and states she continues to have minimal pain. /[id number] HG/MODL MTDD
[2019-05-12] MEDS ORDERED: Celecoxib 200 MG Cap PO SCH (12:00)
== END 2019-05-12 13:20 | disposition home or self-care (01) ==
LOC: FB.SDS 07:15 → FB.MS 12:02 → FB.SDS 05-12 13:20
PROVIDERS: ATTEND Orthopaedic Surgery
DX: M17.11 Unilateral primary osteoarthritis, right knee (principal); G89.18 Other acute postprocedural pain; F41.9 Anxiety disorder, unspecified; F31.9 Bipolar disorder, unspecified; E03.9 Hypothyroidism, unspecified; G47.33 Obstructive sleep apnea (adult) (pediatric); K21.9 Gastro-esophageal reflux disease without esophagitis; Z87.891 Personal history of nicotine dependence; Z79.1 Long term (current) use of non-steroidal anti-inflammatories (NSAID); Z79.899 Other long term (current) drug therapy; Z88.8 Allergy status to other drugs, medicaments and biological substances; Z99.89 Dependence on other enabling machines and devices
CPT/HCPCS: 27447; 36415; 51702; 64447; 73560; 80048; 80053; 82962; 85025; 86850; 86900; 86901; 94150; 97165; 97530; A9270; J0171; J0690; J0735; J1885; J2250; J2405; J2704; J2795; J3010; J3370; J3490; J7050; J7120; J7121; C1713; C1776